=== PATIENT | male | born 1950 | race Caucasian/White ===

== ENCOUNTER 2019-07-03 10:37 | Emergency (ER) | payer MEDICARE, OTHER ==
[~2019-07-03] VITALS: Ht 182.9 cm; Wt 87.1 kg
[~2019-07-03 10:37] MED LIST: ASPI-605 PO; FOLI1TAB16 PO; LISI-658 PO; METF-881 PO; SIMV10TA2 PO
--- NOTE | 2019-07-03 10:50 | NUR ---
BIB SELF C/O GEN BODY PAIN "I THINK CANCER IS ATTACKING MY BODY" PATIENT A/OX4, BREATHING EVEN AND UNLABORED, NO SOB NOTED. NEEDS ATTENDED.
[2019-07-03] MEDS ORDERED: HYDROMORPHONE 1 MG/1 ML DISP.SYRIN ONE (11:08)
--- NOTE | 2019-07-03 11:10 | NUR ---
PT IS WHEELED TO CT SCAN VIA [facility].
--- NOTE | 2019-07-03 11:28 | NUR ---
PATIENT CAME BACK FROM CT.
[2019-07-03] MEDS ORDERED: HYDROMORPHONE INJ 0.5 MG/0.5 ML SYRINGE IM ONE (11:30)
--- NOTE | 2019-07-03 12:24 | NUR ---
CALLED DR. [facility] [phone] IN WAITER/WAITRESS DOCTOR IS DR. ODELL WILL BE PAGED.
--- NOTE | 2019-07-03 13:28 | NUR ---
PATIENT ABLE TO AMBULATE, SLOW BUT STEADY GAIT. PATIENT NOTED TO HAVE URINARY INCONTINENCE.
--- NOTE | 2019-07-03 13:44 | NUR ---
PATIENT AMBULATORY WITH STEADY GAIT. NO DISTRESS NOTED. Patient discharged to home in stable condition. Written and verbal after care instructions given. Patient verbalizes understanding of instruction. 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
[2019-07-03 13:45] VITALS: BP 130/72
== END 2019-07-03 13:45 | disposition home or self-care (01) ==
LOC: ER 10:38
DX: C61 Malignant neoplasm of prostate (principal); C79.51 Secondary malignant neoplasm of bone; C79.89 Secondary malignant neoplasm of other specified sites; M84.859 Other disorders of continuity of bone, unspecified pelvic region and thigh; M79.18 Myalgia, other site; I10 Essential (primary) hypertension; E78.00 Pure hypercholesterolemia, unspecified; E11.9 Type 2 diabetes mellitus without complications; Z90.89 Acquired absence of other organs; Z79.899 Other long term (current) drug therapy; Z79.82 Long term (current) use of aspirin
CPT/HCPCS: 72192; 96372; 99284; J1170